=== PATIENT | female | born 1975 | race American Indian/Alaskan Native ===

== ENCOUNTER 2017-07-21 19:47 | Emergency (ER) | payer SELFPAY ==
[2017-07-21 20:24] VITALS: BP 131/89
[2017-07-21 21:05] LABS: Bilirubin,Urine NEG (Negative); Blood,Urine NEG (Negative); Color,Urine Yellow (Yellow); Protein,Urine <15 mg/dL mg/dL (Negative); Urobilinogen,Urine < 2.0 mg/dL (<2.0); WBC,Urine < 1.0 /HPF (0.0-6.0)
[2017-07-21 21:06] LABS: HCG Qualitative,Urine Negative (Negative)
[2017-07-21 21:30] LABS: Basophils % (Auto) 0.6 % (0.0-1.8); Eosinophils # (Auto) 0.3 K/mm3 (0.0-0.4); Eosinophils % (Auto) 4.1 % (0.0-4.3); Hematocrit 38.2 % (30.3-42.9); Hemoglobin 12.7 gm/dl (10.1-14.3); Lymphocytes # (Auto) 1.8 K/mm3 (1.2-5.4); Lymphocytes % (Auto) 24.8 % (13.4-35.0); Mean Corpuscular HGB Conc 33 % (30-34); Mean Corpuscular Hemoglobin 33 pg (28-32); Mean Corpuscular Volume 100 fl (79-97); Monocytes # (Auto) 0.9 K/mm3 (0.0-0.8); Monocytes % (Auto) 12.4 % (0.0-7.3); Platelet Count 213 K/mm3 (140-440); Red Blood Count 3.84 M/mm3 (3.65-5.03); Red Cell Distribution Width 12.9 % (13.2-15.2)
[2017-07-21 21:42] LABS: Alanine Aminotransferase 43 units/L (7-56); Albumin 4.5 g/dL (3.9-5); BUN/Creatinine Ratio 12; Blood Urea Nitrogen 7 mg/dL (7-17); Calcium 8.8 mg/dL (8.4-10.2); Hemolysis Index 2
== END 2017-07-21 21:01 | disposition left against medical advice (07) ==
LOC: ED 19:47
DX: R53.1 Weakness (principal); Z53.21 Procedure and treatment not carried out due to patient leaving prior to being seen by health care provider
CPT/HCPCS: 36415; 80053; 81001; 81025; 85025

== ENCOUNTER 2017-07-22 16:30 | Emergency (ER) | payer SELFPAY ==
[2017-07-22] MEDS ORDERED: ZOFRAN IV ONE (19:32)
[2017-07-22] MEDS ORDERED: NACL 0.9% 1000 ML 1,000 ML IV ONE (19:32)
[2017-07-22] MEDS ORDERED: NORCO 5/325 PO ONE (22:12)
--- NOTE | 2017-07-22 22:29 | Emergency Department Report ---
HPI - General Chief Complaint: Abdominal Pain Time Seen by Provider: 07/22/17 19:26 - HPI HPI: The patient is a 42-year-old female who presents for evaluation of abdominal pain. The patient reports 3-4 weeks of lower abdominal pain, crampy in quality , moderate in severity, improved with defecation, associated with nausea, nonbilious, nonbloody emesis, multiple episodes of loose watery stools. The patient denies blood in the stools, black tarry stools, recent antibiotic use, travel outside the country, exposure to raw or uncooked seafood, reheated foods , untreated water, unpasteurized dairy, or reptilian pets including lizards, frogs, or snakes. ED Past Medical Hx - Past Medical History Hx GERD: Yes - Surgical History Additional Surgical History: tonsillectomy - Social History Smoking Status: Current Every Day Smoker Substance Use Type: Alcohol - Medications Home Medications: Home Medications Medication Instructions Recorded Confirmed Last Taken Type HYDROcodone/APAP 7.5-325 [[place] 1 each PO Q6HR PRN #20 tablet 07/17/13 Unknown Rx 7.5/325 mg] Naproxen [Naprosyn] 500 mg PO BID #30 tablet 07/17/13 Unknown Rx methOCARBAMOL [Robaxin] 500 mg PO BID #30 tab 07/17/13 Unknown Rx methylPREDNISolone [Medrol Dose 4 mg PO DAILY 6 Days tab 07/17/13 Unknown Rx [place]] Acetaminophen/Codeine [Tylenol #3] 1 tab PO Q6H PRN #14 tab 07/22/17 Unknown Rx Ondansetron [Zofran TAB] 4 mg PO Q8HR PRN #20 tablet 07/22/17 Unknown Rx ED Review of Systems ROS: Stated complaint: ABD PAIN/DIARRHEA Other details as noted in HPI Constitutional: denies: fever ENT: denies: throat or neck pain Respiratory: denies: cough, shortness of breath Cardiovascular: denies: chest pain Endocrine: denies unexplained weight loss or gain Gastrointestinal:reports abdominal pain, nausea Genitourinary: denies: dysuria Musculoskeletal: denies: leg swelling Skin: denies: rash Neurological: denies: headache Hematological/Lymphatic: denies: easy bleeding or easy bruising Psych: denies sadness or hopelessness Physical Exam - Physical Exam Vital Signs: Vital Signs 06/07/22/17 07/22/17 16:36 20:04 20:07 Temperature 97.5 F L 98.4 F Pulse Rate 105 H 92 H Respiratory 17 20 20 Rate Blood Pressure 128/96 Blood Pressure 138/95 [Left] O2 Sat by Pulse 98 99 99 Oximetry Physical Exam: General: well-nourished, well-developed, no acute distress Head: Normocephalic, atraumatic Eyes: normal sclera ENT: Mucous membranes are pale and dry Neck: No neck stiffness, no cervical adenopathy Respiratory: Breath sounds equal bilaterally, no wheezing, rales, or rhonchi Cardio: S1 and S2 present, no murmurs, rubs, gallops, capillary refill is delayed Abdomen: Normoactive bowel sounds, soft abdomen, llq tender to palpation, no rigidity, no guarding or rebound tenderness Musc: No pitting edema Skin: No rash Neuro: no facial drooping, normal speech Psych: Normal affect ED Course Vital Signs 07/22/17 07/22/17 07/22/17 16:36 20:04 20:07 Temperature 97.5 F L 98.4 F Pulse Rate 105 H 92 H Respiratory 17 20 20 Rate Blood Pressure 128/96 Blood Pressure 138/95 [Left] O2 Sat by Pulse 98 99 99 Oximetry ED Medical Decision Making - Medical Decision Making The patient was seen and examined by myself. The patient is placed on a bus driver/monitor and continuous pulse ox. On initial evaluation, the patient was found to be in no distress. Evaluation orders are placed. IV access is established and the patient is given 1 L normal saline fluid bolus and Zofran for nausea, and a Tylenol 3 for pain. Lab results were non-concerning including WBC, hemoglobin, hematocrit, electrolytes, renal function, LFTs, lipase, and urinalysis. The patient was reevaluated and reported that their symptoms were markedly improved. The patient is stable for discharge with outpatient follow- up. The patient is given follow-up and return instructions. The patient expressed understanding and agreed with the plan. The patient is discharged in stable condition. Critical care attestation.: If time is entered above; I have spent that time in minutes in the direct care of this critically ill patient, excluding procedure time. ED Disposition Clinical Impression: Acute abdominal pain in left lower quadrant, Dehydration Diarrhea Qualifiers: Diarrhea type: unspecified type Qualified Code(s): R19.7 - Diarrhea, unspecified Disposition: DC- TO HOME OR SELFCARE Is pt being admited?: No Does the pt Need Aspirin: No Condition: Stable Instructions: Gastroenteritis (ED), Abdominal Pain (ED), Nutrition Tips for Relief of Diarrhea (ED) Prescriptions: Acetaminophen/Codeine [Tylenol #3] 1 tab PO Q6H PRN #14 tab PRN Reason: Pain Ondansetron [Zofran TAB] 4 mg PO Q8HR PRN #20 tablet PRN Reason: Nausea Referrals: [facility] [Provider Group] - 3-5 Days [facility] [Provider Group] - 3-5 Days Forms: Work/School Release Form(ED) Time of Disposition: 22:13
[2017-07-22 23:39] VITALS: BP 132/88
== END 2017-07-22 23:00 | disposition home or self-care (01) ==
LOC: ED 16:30
DX: E86.0 Dehydration (principal); R10.32 Left lower quadrant pain; R19.7 Diarrhea, unspecified; K21.9 Gastro-esophageal reflux disease without esophagitis; F17.200 Nicotine dependence, unspecified, uncomplicated; Z90.89 Acquired absence of other organs
CPT/HCPCS: 96361; 96374; 99283; J2405; J7030

== ENCOUNTER 2017-09-13 11:51 | Emergency (ER) | payer OTHER ==
[2017-09-13 13:26] LABS: Bilirubin,Urine NEG (Negative); Blood,Urine SM (Negative); Color,Urine Yellow (Yellow); Mucus,Urine 2+ /HPF; Urobilinogen,Urine < 2.0 mg/dL (<2.0)
[2017-09-13 13:29] LABS: HCG Qualitative,Urine Negative (Negative)
--- NOTE | 2017-09-13 14:33 | Emergency Department Report ---
Chief Complaint: Nausea/Vomiting/Diarrhea Stated Complaint: WEAKINESS/DIARRHEA Time Seen by Provider: 09/13/17 14:25 - HPI History of Present Illness: 42-year-old afterward female presents to the emergency department with a complaint of continued diarrhea and increased fatigue and general weakness. The patient was previously diagnosed with C. difficile and finished a 2 week course of Flagyl. However it did not appear to help as the patient still has 7- 8 bowel movements per day. She is following with a accounting bookkeeper who recently told her that her liver function tests are "down." She denies any chest pain, fever, nausea, vomiting, shortness of breath. - ROS Review of Systems: Positive for diarrhea, generalized weakness, fatigue Negative for fever, chest pain, shortness of breath - Exam Vital Signs: Vital Signs 09/13/17 11:58 Temperature 97.8 F Pulse Rate 103 H Respiratory 18 Rate Blood Pressure 110/81 O2 Sat by Pulse 99 Oximetry Physical Exam: Hyperactive bowel sounds. However abdomen is soft and nontoxic in appearance. Heart and lung Sounds are normal to auscultation. MSE screening note: Focused history and physical exam performed. Due to findings the following was ordered: I have ordered a CBC, CMP and TSH. Urinalysis only shows trace ketones and there is no signs of any urinary tract infection. ED Disposition for MSE Condition: Stable Referrals: PRIMARY CARE, [Primary Care Provider] - 3-5 Days
[2017-09-13] MEDS ORDERED: NACL 0.9% 1000 ML 1,000 ML IV ONE (15:09)
[2017-09-13 15:54] LABS: Basophils # (Auto) 0.1 K/mm3 (0.0-0.1); Basophils % (Auto) 1.1 % (0.0-1.8); Eosinophils # (Auto) 0.4 K/mm3 (0.0-0.4); Hematocrit 41.4 % (30.3-42.9); Hemoglobin 13.8 gm/dl (10.1-14.3); Lymphocytes # (Auto) 2.3 K/mm3 (1.2-5.4); Lymphocytes % (Auto) 41.7 % (13.4-35.0); Mean Corpuscular HGB Conc 33 % (30-34); Mean Corpuscular Hemoglobin 33 pg (28-32); Mean Corpuscular Volume 100 fl (79-97); Monocytes # (Auto) 0.5 K/mm3 (0.0-0.8); Monocytes % (Auto) 8.8 % (0.0-7.3); Platelet Count 163 K/mm3 (140-440); Red Blood Count 4.16 M/mm3 (3.65-5.03); Red Cell Distribution Width 13.1 % (13.2-15.2)
[2017-09-13 16:14] LABS: Alanine Aminotransferase 117 units/L (7-56); Albumin 4.1 g/dL (3.9-5); BUN/Creatinine Ratio 10; Blood Urea Nitrogen 5 mg/dL (7-17); Calcium 8.6 mg/dL (8.4-10.2); Hemolysis Index 10
--- NOTE | 2017-09-13 16:34 | Emergency Department Report ---
Vomiting/Diarrhea - HPI Chief Complaint: Nausea/Vomiting/Diarrhea Stated Complaint: WEAKINESS/DIARRHEA Time Seen by Provider: 09/13/17 14:25 Duration: 2-3 months Severity: severe Nausea/Vomiting Severity: None Diarrhea Severity: Severe Pain Severity: None Symptoms: Yes Watery Diarrhea, Yes Able to Tolerate Fluids, No Bloody diarrhea, No Fever, No Recent Unusual Foods, No Recent Untreated Water, No Recent use of Antibiotics, No Family w/ Similar Symptoms, No Contacts w/ Similar Symptoms, No Rash, No Hematuria, No Recent URI Symptoms Other History: This is a 42-year-old -[place] female who presents with diarrhea for 2-3 months. Past medical history of GERD. Patient states she has been feeling weak and tired since symptoms started. Patient states she is having assessment tachycardia episodes of diarrhea daily. She was diagnosed with C. difficile and amylase 2 weeks ago and placed on Flagyl. Patient states she completed a full course of Flagyl but continues to have diarrhea. She was referred to a microsoft net developer and was seen yesterday and placed on vancomycin but unable to picker / packer prescription because it was $100+. She was told by a microsoft net developer that her liver enzymes may be the cause of symptoms and she will switch antibiotics. She has a scheduled ultrasound with the microsoft net developer on September 27. Patient denies abdominal pain, vaginal bleeding or discharge, dysuria, frequency, urgency, and fever. ED Review of Systems ROS: Stated complaint: WEAKINESS/DIARRHEA Other details as noted in HPI Constitutional: denies: chills, fever Respiratory: denies: cough, shortness of breath, wheezing Cardiovascular: denies: chest pain, palpitations Gastrointestinal: diarrhea. denies: abdominal pain, nausea, vomiting, constipation, hematemesis, melena, hematochezia Genitourinary: denies: urgency, dysuria, frequency, discharge Neurological: denies: headache, weakness, numbness, paresthesias Psychiatric: denies: anxiety, depression ED Past Medical Hx - Past Medical History Previous Medical History?: Yes Hx GERD: Yes Additional medical history: c-diff - Surgical History Past Surgical History?: Yes Additional Surgical History: tonsillectomy. x 1 - Social History Smoking Status: Current Every Day Smoker Substance Use Type: Alcohol - Medications Home Medications: Home Medications Medication Instructions Recorded Confirmed Last Taken Type HYDROcodone/APAP 7.5-325 [[place] 1 each PO Q6HR PRN #20 tablet 07/17/13 Unknown Rx 7.5/325 mg] Naproxen [Naprosyn] 500 mg PO BID #30 tablet 07/17/13 Unknown Rx methOCARBAMOL [Robaxin] 500 mg PO BID #30 tab 07/17/13 Unknown Rx methylPREDNISolone [Medrol Dose 4 mg PO DAILY 6 Days tab 07/17/13 Unknown Rx [place]] Acetaminophen/Codeine [Tylenol #3] 1 tab PO Q6H PRN #14 tab 07/22/17 Unknown Rx Ondansetron [Zofran TAB] 4 mg PO Q8HR PRN #20 tablet 07/22/17 Unknown Rx Vomiting Diarrhea Exam - Exam General: Vital signs noted. No distress. Alert and acting appropriately. HEENT: Yes Moist Mucous Membranes, No Pharyngeal Erythema, No Pharyngeal Exudates, No Rhinorrhea, No Conjuctival Injection, No Frontal Tenderness, No Maxillary Tenderness Neck: No Adenopathy, No Rigidity Lungs: Yes Clear Lung Sounds, Yes Good Air Exchange, No Wheezes, No Stridor, No Cough, No Nasal Flaring, No Retractions, No Use of Accessory Muscles Heart exam: Regular: Yes, Murmur: No, Tachycardia: No Abdomen: Tenderness: No, Peritoneal Signs: No, Distention: No, Hyperactive Bowel sounds: No Skin exam: Rash: No, Edema: No, Normal turgor: Yes Neurologic: Alert and oriented, no deficits. Musculoskeletal: Unremarkable. ED Course Vital Signs 09/13/17 11:58 Temperature 97.8 F Pulse Rate 103 H Respiratory 18 Rate Blood Pressure 110/81 O2 Sat by Pulse 99 Oximetry ED Medical Decision Making - Lab Data Result diagrams: 09/13/17 15:03 09/13/17 15:03 - Radiology Data Radiology results: report reviewed PROCEDURE: US ABDOMEN COMPLETE TECHNIQUE: Real-time sonography in multiple planes of the abdomen was performed with image documentation. CPT 67834 HISTORY: elevated liver enzymes COMPARISON: No prior studies are available for comparison. FINDINGS: Examination the right upper quadrant shows normal echogenicity of the liver. No masses are identified. Common bile duct is normal caliber measuring 1.8 millimeters. The intrahepatic ducts are not distended. No ascites is seen. Gallbladder appears normal. No evidence of gallstones or gallbladder wall thickening. Visualized portions of the pancreas appear normal. Portions of the tail of the pancreas are obscured by bowel gas and cannot be commented on. The right and left kidney show normal echogenicity of the renal cortex. No masses calculi or hydronephrosis visualized. The right kidney measures 11.2 centimeters greatest length the left kidney measures 9.6 centimeters greatest length. The spleen is unremarkable measuring 6.5 centimeters. Proximal abdominal aorta is normal appearance measuring 1.8 centimeter in diameter. Mid and distal abdominal aorta are not visualized. Visualized inferior vena cava is unremarkable. IMPRESSION: Negative exam.. - Medical Decision Making This is a 42 y.o. female that presents with diarrhea and weakness intermittently for 2-3 months. Patient is stable and was examined by me. Vitals stable. Obtained CMP, CBC, TSH, tropinin, UA, and EKG. Liver enzymes were elevated, trace ketones in urine and bun and creat low. US of abdomen obtained and dictated by radiologist. Essentially negative sonogram of abdomen. Given normal saline 1 L bolus in ER. Patient informed of US results and instructed to f/u with microsoft net developer as she is currently under care for further management. Discussed plan with patient and agreed to plan. No further questions noted by the patient. Discharged home in stable condition. Follow up with PCP in 2-3 days. Critical care attestation.: If time is entered above; I have spent that time in minutes in the direct care of this critically ill patient, excluding procedure time. ED Disposition Clinical Impression: Elevated liver enzymes Diarrhea Qualifiers: Diarrhea type: presumed infectious Qualified Code(s): R19.7 - Diarrhea, unspecified Disposition: DC- TO HOME OR SELFCARE Is pt being admited?: No Does the pt Need Aspirin: No Condition: Stable Instructions: Acute Diarrhea (ED) Additional Instructions: Follow-up with instructional services librarian is in near we management of elevated liver enzymes. Increase fluid intake to avoid dehydration. Follow up with primary care provider in 2-3 days. Referrals: BRIGIDO Jacked, [facility] [Provider Group] - 3-5 Days [facility] [Provider Group] - 3-5 Days Time of Disposition: 18:24 Print Language: AZERI
--- NOTE | 2017-09-13 17:54 | Ultrasound Report ---
FINAL REPORT PROCEDURE: US ABDOMEN COMPLETE TECHNIQUE: Real-time sonography in multiple planes of the abdomen was performed with image documentation. CPT 84490 HISTORY: elevated liver enzymes COMPARISON: No prior studies are available for comparison. FINDINGS: Examination the right upper quadrant shows normal echogenicity of the liver. No masses are identified. Common bile duct is normal caliber measuring 1.8 millimeters. The intrahepatic ducts are not distended. No ascites is seen. Gallbladder appears normal. No evidence of gallstones or gallbladder wall thickening. Visualized portions of the pancreas appear normal. Portions of the tail of the pancreas are obscured by bowel gas and cannot be commented on. The right and left kidney show normal echogenicity of the renal cortex. No masses calculi or hydronephrosis visualized. The right kidney measures 11.2 centimeters greatest length the left kidney measures 9.6 centimeters greatest length. The spleen is unremarkable measuring 6.5 centimeters. Proximal abdominal aorta is normal appearance measuring 1.8 centimeter in diameter. Mid and distal abdominal aorta are not visualized. Visualized inferior vena cava is unremarkable. IMPRESSION: Negative exam..
[2017-09-13 18:38] VITALS: BP 112/78
== END 2017-09-13 18:25 | disposition home or self-care (01) ==
LOC: ED 11:51
DX: R19.7 Diarrhea, unspecified (principal); R74.8 Abnormal levels of other serum enzymes; Z88.1 Allergy status to other antibiotic agents; K21.9 Gastro-esophageal reflux disease without esophagitis; Z90.49 Acquired absence of other specified parts of digestive tract; F17.200 Nicotine dependence, unspecified, uncomplicated
CPT/HCPCS: 36415; 76700; 80053; 81001; 81025; 84443; 84484; 85025; 93005; 93010; 96360; 99284; J7030

== ENCOUNTER 2017-09-16 19:56 | Emergency (ER) | payer OTHER ==
[2017-09-16] MEDS ORDERED: NACL 0.9% 1000 ML 1,000 ML IV ONE (20:58)
[2017-09-16 21:03] LABS: Bacteria,Urine 1+ /HPF (Negative); Bilirubin,Urine NEG (Negative); Blood,Urine NEG (Negative); Color,Urine Yellow (Yellow); Protein,Urine <15 mg/dL mg/dL (Negative); Urobilinogen,Urine < 2.0 mg/dL (<2.0)
[2017-09-16 21:36] LABS: Hematocrit 39.4 % (30.3-42.9); Hemoglobin 13.6 gm/dl (10.1-14.3); Mean Corpuscular HGB Conc 35 % (30-34); Mean Corpuscular Hemoglobin 34 pg (28-32); Mean Corpuscular Volume 98 fl (79-97); Platelet Count 158 K/mm3 (140-440); Red Blood Count 4.02 M/mm3 (3.65-5.03); Red Cell Distribution Width 13.4 % (13.2-15.2)
[2017-09-16 21:58] LABS: Alanine Aminotransferase 86 units/L (7-56); Albumin 4.2 g/dL (3.9-5); BUN/Creatinine Ratio 5; Blood Urea Nitrogen 3 mg/dL (7-17); Calcium 9.2 mg/dL (8.4-10.2); Hemolysis Index 12
--- NOTE | 2017-09-16 22:33 | Cat Scan Report ---
FINAL REPORT EXAM: CT HEAD/BRAIN WO CON HISTORY: Headache w/ blurred vision and tingling TECHNIQUE: 2.5 millimeter axial images from the skullbase to the vertex. Comparison: None FINDINGS: There is no evidence of an acute intracranial process, intracranial hemorrhage or mass effect. The ventricles are normal size. 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 The bony structures are unremarkable in appearance. IMPRESSION: 1. No evidence of an acute intracranial process, intracranial hemorrhage or mass effect. If there is a clinical suspicion of an acute intracranial process and if further imaging is required, MRI brain may be helpful.
--- NOTE | 2017-09-17 00:54 | Emergency Department Report ---
ED General Adult HPI - General Chief complaint: Neuro Symptoms/Deficit Stated complaint: HEADACHE/BLURRED VISION/NUMBNESS Time Seen by Provider: 09/17/17 00:04 Source: patient Mode of arrival: Ambulatory Limitations: No Limitations - History of Present Illness Initial comments: Patient gives somewhat complicated history, leading up to her presenting symptoms, which include frontal headache, tingling in the left side of her scalp and neck, with concerns for possible stroke or aneurysm, and have been present for 2-3 weeks, did not resolve spontaneously, and she and became concerned when she saw that aneurysm was a possibility. Patient has significant history of recent diagnosis of Clostridium difficile intestinal infection, with treatment failure earlier on Flagyl, and recent initiation of vancomycin, with improvement in diarrheal stools, but has been having significant fluid losses with 8-10 loose watery diarrheal stools daily until she began the vancomycin. She is also a difficulty eating, as taken in any solid food generally causes significant abdominal cramping. She has been compensating with increased fluids, finds it difficult to take in additional solid foods, and has not begun supplementing with nutritional supplements for unknown reason. Patient's history is also further complicated by the fact that she drinks significant amounts of alcohol on a daily basis, generally 4-5 hard liquor drinks each evening, after work, as she reports it is difficult to get any sleep without this. She did stop drinking entirely while she was on Flagyl because of the reported complications, but she started back drinking once she stopped the Flagyl, and although she has been on vancomycin for 2 days, did not stop drinking until yesterday. She has never had a problem with drinking before , has never been told that she has needed to stop, but has never sought rehabilitation, and generally prefers the beneficial effects on her sleep that she gets from drinking. Nonetheless, patient is now concerned about her secondary symptoms, with some agitation, and difficulty sleeping as well, but also is concerned about her symptoms today. She's had no prior history of neurologic problems, is in good general health otherwise, has no prior history of stroke, no heart disease, no hypertension. Severity scale (0 -10): 4 - Related Data Previous Rx's Medication Instructions Recorded Last Taken Type HYDROcodone/APAP 7.5-325 [[place] 1 each PO Q6HR PRN #20 tablet 07/17/13 Unknown Rx 7.5/325 mg] Naproxen [Naprosyn] 500 mg PO BID #30 tablet 07/17/13 Unknown Rx methOCARBAMOL [Robaxin] 500 mg PO BID #30 tab 07/17/13 Unknown Rx methylPREDNISolone [Medrol Dose 4 mg PO DAILY 6 Days tab 07/17/13 Unknown Rx [place]] Acetaminophen/Codeine [Tylenol #3] 1 tab PO Q6H PRN #14 tab 07/22/17 Unknown Rx Ondansetron [Zofran TAB] 4 mg PO Q8HR PRN #20 tablet 07/22/17 Unknown Rx LORazepam [Ativan] 1 mg PO .TAPER #90 tablet 09/17/17 Unknown Rx Allergies Allergy/AdvReac Type Severity Reaction Status Date / Time clindamycin Allergy Anaphylaxis Verified 02/06/13 07:02 ED Review of Systems ROS: Stated complaint: HEADACHE/BLURRED VISION/NUMBNESS Other details as noted in HPI Comment: All other systems reviewed and negative Constitutional: denies: chills, diaphoresis Eyes: vision change. denies: eye pain ENT: denies: throat pain Respiratory: denies: cough, orthopnea, shortness of breath Cardiovascular: denies: chest pain, palpitations, edema Endocrine: no symptoms reported. denies: flushing Gastrointestinal: abdominal pain (chronic, secondary to C. difficile, no acute changes), diarrhea. denies: nausea, vomiting, constipation Genitourinary: denies: as per HPI Musculoskeletal: denies: back pain, joint swelling, arthralgia Skin: denies: rash, lesions Neurological: headache (frontal bilaterally, with tingling left side), paresthesias (left-sided scalp radiating into neck). denies: weakness, numbness , abnormal gait, vertigo Psychiatric: anxiety. denies: depression, auditory hallucinations, visual hallucinations, suicidal thoughts Hematological/Lymphatic: denies: easy bleeding, easy bruising ED Past Medical Hx - Past Medical History Previous Medical History?: Yes Hx GERD: Yes Additional medical history: c-diff - Surgical History Past Surgical History?: Yes Additional Surgical History: tonsillectomy. x 1 - Social History Smoking Status: Current Every Day Smoker - Medications Home Medications: Home Medications Medication Instructions Recorded Confirmed Last Taken Type HYDROcodone/APAP 7.5-325 [[place] 1 each PO Q6HR PRN #20 tablet 07/17/13 Unknown Rx 7.5/325 mg] Naproxen [Naprosyn] 500 mg PO BID #30 tablet 07/17/13 Unknown Rx methOCARBAMOL [Robaxin] 500 mg PO BID #30 tab 07/17/13 Unknown Rx methylPREDNISolone [Medrol Dose 4 mg PO DAILY 6 Days tab 07/17/13 Unknown Rx [place]] Acetaminophen/Codeine [Tylenol #3] 1 tab PO Q6H PRN #14 tab 07/22/17 Unknown Rx Ondansetron [Zofran TAB] 4 mg PO Q8HR PRN #20 tablet 07/22/17 Unknown Rx LORazepam [Ativan] 1 mg PO .TAPER #90 tablet 09/17/17 Unknown Rx ED Physical Exam - General Limitations: No Limitations General appearance: alert, anxious, other (somewhat hyperactive, borderline vital signs, with mild hypertension, and mild tachycardia as well as mild tachypnea) - Head Head exam: Present: atraumatic, normocephalic - Eye Eye exam: Present: PERRL, EOMI. Absent: nystagmus - ENT ENT exam: Present: normal exam, mucous membranes moist - Neck Neck exam: Present: normal inspection, full ROM. Absent: meningismus - Respiratory Respiratory exam: Present: normal lung sounds bilaterally. Absent: respiratory distress, wheezes, rales, rhonchi, chest wall tenderness - Cardiovascular Cardiovascular Exam: Present: regular rate, tachycardia, normal heart sounds. Absent: systolic murmur, diastolic murmur - GI/Abdominal GI/Abdominal exam: Present: soft, normal bowel sounds. Absent: tenderness, mass - Rectal Rectal exam: Present: deferred - Extremities Exam Extremities exam: Present: normal inspection, full ROM, normal capillary refill. Absent: tenderness, pedal edema - Back Exam Back exam: Present: normal inspection. Absent: tenderness - Neurological Exam Neurological exam: Present: alert, oriented X3, CN II-XII intact, reflexes normal. Absent: motor sensory deficit - Psychiatric Psychiatric exam: Present: normal affect, normal mood (cooperative, appropriate throughout), other (slightly hyperactive, not clinically agitated) - Skin Skin exam: Present: warm, dry, intact. Absent: diaphoretic, petechiae, pallor, ecchymosis ED Course Vital Signs 09/16/17 09/16/17 09/16/17 20:03 23:53 23:55 Temperature 36.9 C 36.6 C Pulse Rate 96 H 105 H 103 H Respiratory 20 20 13 Rate Blood Pressure 146/108 Blood Pressure 128/101 [Right] O2 Sat by Pulse 98 100 100 Oximetry ED Medical Decision Making - Lab Data Result diagrams: 09/16/17 21:06 09/16/17 21:06 - Radiology Data Radiology results: report reviewed (CT scan of brain without contrast is negative) - Medical Decision Making Patient's symptoms and findings are a little bit difficult to untangle, but I believe her underlying difficulty is chronic alcohol abuse, and that she is experiencing mild withdrawal symptoms, having paresthesias and somatic symptoms , which could be aggravated by mild dehydration or mild metabolic abnormalities induced by her chronic diarrhea and Clostridium difficile infection, as well as her significant weight loss since she is unable to eat adequately also. She may well have an underlying anxiety disorder, as her significant other reports, I believe that she is mildly agitated and stimulated in general from alcohol withdrawal. We discussed her level of alcohol use, and I recommended that she consider stopping entirely, should she had gone a couple weeks without anything before, but that if she did resume drinking that she limit herself to 2 drinks per day. I think she needs some benzodiazepine support while she is experiencing symptoms, and we'll put her on withdrawal regimen, with gradual withdrawal of the benzodiazepine while she is reduce her alcohol, and recommend that she follow with mental health counseling. - Differential Diagnosis dehydration, neurologic deficit, metabolic abnormality, CVA Critical Care Time: No Critical care attestation.: If time is entered above; I have spent that time in minutes in the direct care of this critically ill patient, excluding procedure time. ED Disposition Clinical Impression: Paresthesias, Somatic symptom disorder, mild, Alcohol abuse, Alcohol withdrawal , Clostridium difficile enteritis Disposition: DC-01 TO HOME OR SELFCARE Is pt being admited?: No Does the pt Need Aspirin: No Condition: Stable Instructions: Hyperventilation (ED), Dehydration (ED), Abuse of Alcohol (ED), Alcohol Withdrawal (ED) Additional Instructions: Your symptoms today are not related to a stroke, posterior lab work and CT scan are both negative. Symptoms today are most likely related to your excessive use of alcohol, and the fact that you have recently stopped drinking, and are probably in a mild withdrawal syndrome. This can be compensated by dehydration from the chronic diarrhea, which can accentuate the secondary symptoms, along with hyperventilation, which can occur with anxiety and agitation, along with alcohol withdrawal. We are prescribing a mild tranquilizer, lorazepam, to treat your agitation, reduce the side effects of alcohol withdrawal, and to help you sleep. We want to take lorazepam on a regular basis over the next several weeks, as the secondary agitation from alcohol can remain for a prolonged period of time. For the first week, take one tablet of lorazepam 4 times a day, every 6 hours, on a regular basis. For the second week, you should then reduce lorazepam to 3 times a day, every 8 hours, on a regular basis The third week, take two tablets of lorazepam per day, every twelve hours. For the fourth week, take one tablet lorazepam daily. Although you have functioned well while using alcohol, this amount is still excessive and we recommend that you seek additional mental health counseling to understand and more fully deal with the consequences. Do not restart alcohol, but if you do, limit herself to a total of 2 drinks per day, and make plans to reduce this over the next month to full abstinence. We recommend recheck with your doctor in the next week, let them know of our findings, and our treatment plan, so that her doctor can be aware and can help him manage if you have any problems. Be sure to eat and drink well, but she should avoid significant solid foods, fatty foods, spicy foods, as long as he is upset the stomach, and substitute liquid nutrition drinks such as boost or ensure. Continue with the fluid rehydration, including Pedialyte, as this will help replace the central electrolytes that are lost with diarrhea. Return to Emergency department if you have any new or worrisome symptoms. Prescriptions: LORazepam [Ativan] 1 mg PO .TAPER #90 tablet Referrals: PRIMARY CARE, [Primary Care Provider] - 3-5 Days Time of Disposition: 01:01
[2017-09-17] MEDS ORDERED: ATIVAN PO ONE (01:05)
[2017-09-17 01:20] VITALS: BP 137/101
== END 2017-09-17 01:15 | disposition home or self-care (01) ==
LOC: ED 19:56
DX: F45.9 Somatoform disorder, unspecified (principal); R51 Headache; A04.72 Enterocolitis due to Clostridium difficile, not specified as recurrent; F10.239 Alcohol dependence with withdrawal, unspecified; K21.9 Gastro-esophageal reflux disease without esophagitis; F17.200 Nicotine dependence, unspecified, uncomplicated; Z90.89 Acquired absence of other organs; Z88.1 Allergy status to other antibiotic agents
CPT/HCPCS: 36415; 70450; 80053; 81001; 84703; 85027; 93005; 93010; 99284

== ENCOUNTER 2018-10-12 10:21 | Emergency (ER) | payer OTHER ==
[2018-10-12 10:30] VITALS: BP 112/82
--- NOTE | 2018-10-12 11:06 | Emergency Department Report ---
- General Chief Complaint: Upper Respiratory Infection Stated Complaint: HEAD/FACE PAIN Time Seen by Provider: 10/12/18 10:42 Source: patient Mode of arrival: Ambulatory Limitations: No Limitations - History of Present Illness Initial Comments: 43-year-old female with a past medical history of hypertension, GERD, and previous C. difficile infection presents to the Hospital complaining of sinus pressure, nasal congestion, facial pain for several weeks. Patient uses saline nasal spray without improvement. She denies purulent nasal discharge, fever, cough, or shortness of breath. - Related Data Previous Rx's Medication Instructions Recorded Last Taken Type HYDROcodone/APAP 7.5-325 [[place] 1 each PO Q6HR PRN #20 tablet 07/17/13 Unknown Rx 7.5/325 mg] Naproxen [Naprosyn] 500 mg PO BID #30 tablet 07/17/13 Unknown Rx methOCARBAMOL [Robaxin] 500 mg PO BID #30 tab 07/17/13 Unknown Rx methylPREDNISolone [Medrol Dose 4 mg PO DAILY 6 Days tab 07/17/13 Unknown Rx [place]] Acetaminophen/Codeine [Tylenol #3] 1 tab PO Q6H PRN #14 tab 07/22/17 Unknown Rx Ondansetron [Zofran TAB] 4 mg PO Q8HR PRN #20 tablet 07/22/17 Unknown Rx LORazepam [Ativan] 1 mg PO .TAPER #90 tablet 09/17/17 Unknown Rx Azithromycin [Zithromax Z-KRISTINA] 1 dose PO DAILY 5 Days tab 10/12/18 Unknown Rx Fluticasone [Flonase] 1 spray NS QDAY #1 bottle 10/12/18 Unknown Rx Omeprazole Magnesium [PriLOSEC Otc] 20 mg PO QDAY #30 tablet. 10/12/18 Unknown Rx Allergies Allergy/AdvReac Type Severity Reaction Status Date / Time clindamycin Allergy Anaphylaxis Verified 02/06/13 07:02 ED Review of Systems ROS: Stated complaint: HEAD/FACE PAIN Other details as noted in HPI Comment: All other systems reviewed and negative ED Past Medical Hx - Past Medical History Previous Medical History?: Yes Hx GERD: Yes Additional medical history: c-diff - Surgical History Past Surgical History?: Yes Additional Surgical History: tonsillectomy. x 1 - Social History Smoking Status: Current Every Day Smoker Substance Use Type: Alcohol - Medications Home Medications: Home Medications Medication Instructions Recorded Confirmed Last Taken Type HYDROcodone/APAP 7.5-325 [[place] 1 each PO Q6HR PRN #20 tablet 07/17/13 Unknown Rx 7.5/325 mg] Naproxen [Naprosyn] 500 mg PO BID #30 tablet 07/17/13 Unknown Rx methOCARBAMOL [Robaxin] 500 mg PO BID #30 tab 07/17/13 Unknown Rx methylPREDNISolone [Medrol Dose 4 mg PO DAILY 6 Days tab 07/17/13 Unknown Rx [place]] Acetaminophen/Codeine [Tylenol #3] 1 tab PO Q6H PRN #14 tab 07/22/17 Unknown Rx Ondansetron [Zofran TAB] 4 mg PO Q8HR PRN #20 tablet 07/22/17 Unknown Rx LORazepam [Ativan] 1 mg PO .TAPER #90 tablet 09/17/17 Unknown Rx Azithromycin [Zithromax Z-KRISTINA] 1 dose PO DAILY 5 Days tab 10/12/18 Unknown Rx Fluticasone [Flonase] 1 spray NS QDAY #1 bottle 10/12/18 Unknown Rx Omeprazole Magnesium [PriLOSEC Otc] 20 mg PO QDAY #30 tablet. 10/12/18 Unknown Rx ED Physical Exam - General Limitations: No Limitations - Other Other exam information: Normal: No acute distress Head: Atraumatic Eyes: Normal appearance ENT: Moist mucous membranes, bilateral maxi sinus tenderness, nasal congestion, Neck: Normal appearance, no midline cervical tenderness, no meningismus Chest: Clear to auscultation bilaterally, no wheezes, rales, crackles Cardiovascular: Regular rate and rhythm Abdomen: Soft, nontender, nondistended, no rebound or guarding, normal bowel sounds Back: Normal inspection Extremity: Normal appearance, full range of motion Neuro: Alert and oriented 3, speech normal, no gross motor sensory deficit Psych: Appropriate Skin: No rash ED Course Vital Signs 10/12/18 10:27 Temperature 98.4 F Pulse Rate 84 Respiratory 18 Rate Blood Pressure 112/82 ED Medical Decision Making - Medical Decision Making Patient presented with signs and symptoms of sinusitis. Likely viral versus allergic significant nasal congestion. Patient using saline nasal spray without improvement. Patient cannot take decongestants due to underlying hypertension. She also states that a previous prescribed Medrol Dosepak causes spike in her blood pressure. Patient symptoms are likely viral but patient states she wants to try antibiotics. Informed her that antibiotics only treat bacterial infections. Nasal steroids will also be tried in addition to saline spray. ENT follow-up encouraged for recurrent and chronic episodes of sinus pain and pressure. Patient also requesting medication for GERD. - Differential Diagnosis arthritis, GERD, URI Critical Care Time: No Critical care attestation.: If time is entered above; I have spent that time in minutes in the direct care of this critically ill patient, excluding procedure time. ED Disposition Clinical Impression: Sinusitis, GERD (gastroesophageal reflux disease), Nasal congestion Disposition: - TO HOME OR SELFCARE Is pt being admited?: No Does the pt Need Aspirin: No Condition: Stable Instructions: Sinusitis (ED), Gastroesophageal Reflux in Children (ED) Additional Instructions: Take your medications as prescribed. Follow-up with your doctor or the clinic/doctor provided. Return if symptoms worsen. Continue to use saline nasal spray for congestion. Follow up with ENT for evaluation due to chronic recurrent episodes of sinus pressure. Prescriptions: Fluticasone [Flonase] 1 spray NS QDAY #1 bottle Omeprazole Magnesium [PriLOSEC Otc] 20 mg PO QDAY #30 tablet. Azithromycin [Zithromax Z-KRISTINA] 1 dose PO DAILY 5 Days tab Referrals: TIMOTHY DOWNS MD [Staff Physician] - 3-5 Days (ENT) JILLIAN BHAKTA MD [Staff Physician] - 3-5 Days (ENT ) Time of Disposition: 11:07
== END 2018-10-12 11:39 | disposition home or self-care (01) ==
LOC: ED 10:21
DX: J01.90 Acute sinusitis, unspecified (principal); I10 Essential (primary) hypertension; K21.9 Gastro-esophageal reflux disease without esophagitis; F17.200 Nicotine dependence, unspecified, uncomplicated; Z88.1 Allergy status to other antibiotic agents; Z79.899 Other long term (current) drug therapy; Z90.89 Acquired absence of other organs
CPT/HCPCS: 99282

== ENCOUNTER 2018-11-02 12:24 | Emergency (ER) | payer SELFPAY ==
[2018-11-02 13:09] VITALS: BP 109/81
--- NOTE | 2018-11-02 13:50 | Cat Scan Report ---
CT HEAD WITHOUT CONTRAST INDICATION / CLINICAL INFORMATION: headache and dizziness. TECHNIQUE: All CT scans at this location are performed using CT dose reduction for ALARA by means of automated e xposure control. COMPARISON: None available. FINDINGS: HEMORRHAGE: No evidence of intracranial hemorrhage or extra-axial fluid collection. EXTRA-AXIAL SPACES: Cortical sulci, sylvian fissures and basilar cisterns have an unremarkable appear ance. VENTRICULAR SYSTEM: The ventricular system is of normal size and configuration. CEREBRAL PARENCHYMA: No areas of abnormal brain parenchymal attenuation are identified. There is no i ndication of recent infarction. MIDLINE SHIFT OR HERNIATION: There is no mass effect. CEREBELLUM / BRAINSTEM: Brainstem and cerebellum have an unremarkable appearance. INTRACRANIAL VESSELS:No abnormalities are identified on this noncontrast head CT. ORBITS: visualized portions of the orbits have an unremarkable appearance. SOFT TISSUES of HEAD: No significant abnormality. CALVARIUM: Evaluation of bone windows reveals no abnormalities. PARANASAL SINUSES / MASTOID AIR CELLS: Paranasal sinuses are free from inflammatory mucosal disease. Mastoid air cells are normally pneumatized. IMPRESSION: 1. No intracranial abnormalities are identified on head CT without contrast. Signer Name: Adelfo Suarez MD Signed: 11/02/2018 1:46 PM Workstation Name: [id number]
[2018-11-02 14:12] LABS: Hematocrit 36.6 % (30.3-42.9); Hemoglobin 12.5 gm/dl (10.1-14.3); Mean Corpuscular HGB Conc 34 % (30-34); Mean Corpuscular Volume 97 fl (79-97); Platelet Count 221 K/mm3 (140-440); Red Blood Count 3.78 M/mm3 (3.65-5.03); Red Cell Distribution Width 13.3 % (13.2-15.2)
[2018-11-02 14:38] LABS: Alanine Aminotransferase 31 units/L (7-56); BUN/Creatinine Ratio 10; Blood Urea Nitrogen 6 mg/dL (7-17); Calcium 8.3 mg/dL (8.4-10.2); Hemolysis Index 5
[2018-11-02 14:39] LABS: HCG Qualitative,Urine Negative (Negative)
[2018-11-02 14:45] LABS: Bilirubin,Direct < 0.2 mg/dL (0-0.2)
[2018-11-02 14:46] LABS: Creatine Kinase MB < 1.0 ng/mL (0.0-4.0)
[2018-11-02 14:48] LABS: Benzodiazepines Screen,Urine PRESUMPTIVE NEGATIVE; Cannabinoid Screen,Urine PRESUMPTIVE NEGATIVE; Cocaine Screen,Urine PRESUMPTIVE NEGATIVE; Methadone Screen,Urine PRESUMPTIVE NEGATIVE; Opiate Screen,Urine PRESUMPTIVE NEGATIVE
--- NOTE | 2018-11-02 14:50 | Event Note ---
ED Screening Note Date of service: 11/02/18 Time: 13:07 ED Screening Note: This is a 43 y.o. F. that presents to the ER with headache and dizziness for 1-2 weeks intermittently. Reports blurry vision and numbness on left side. Taking Goody powders with no improvement. Current smoker This initial assessment/diagnostic orders/clinical plan/treatment(s) is/are subject to change based on patients health status, clinical progression and re- assessment by fellow clinical providers in the ED. Further treatment and workup at subsequent clinical providers discretion. Patient/guardian urged not to elope from the ED as their condition may be serious if not clinically assessed and managed. Initial orders include: CT of head and accucheck
[2018-11-02 15:09] LABS: Total Cells Counted 100
[2018-11-02 15:11] LABS: Platelet Estimate Consistent w Auto; RBC Morphology Normal
[2018-11-02 15:13] LABS: Amphetamine Screen,Urine PRESUMPTIVE POSITIVE
[2018-11-02] MEDS ORDERED: BUTALB/ACETAMINOPHEN/CAFFEINE TAB PO ONE (15:26)
--- NOTE | 2018-11-02 15:27 | Emergency Department Report ---
ED General Adult HPI - General Chief complaint: Dizziness Stated complaint: DIZZY/HEADACHE Time Seen by Provider: 11/02/18 13:06 Source: patient Mode of arrival: Ambulatory Limitations: No Limitations - History of Present Illness Initial comments: This is a 43-year-old female with a plethora of complaints. She complains of headache which she gets she's had before. She's had previous CTs that were negative. She had a CT ordered by medical screening and was on before my encounter. It was normal. She states that she also has chest pain which she de scribes as "reflux". She states she takes ranitidine for that. Her headache was bifrontal and felt like a tightness. She states that she is not under significant stress. She really doesn't have any other active complaints at the time my encounter. -: week(s), month(s) Location: head, chest Radiation: non-radiation Quality: aching, other (chest pain like "reflux". Burning and acid taste in the back of throat) Consistency: intermittent Improves with: none Worsens with: none Associated Symptoms: denies other symptoms, chest pain. denies: nausea/vomiting, shortness of breath - Related Data Previous Rx's Medication Instructions Recorded Last Taken Type HYDROcodone/APAP 7.5-325 [[place] 1 each PO Q6HR PRN #20 tablet 07/17/13 Unknown Rx 7.5/325 mg] Naproxen [Naprosyn] 500 mg PO BID #30 tablet 07/17/13 Unknown Rx methOCARBAMOL [Robaxin] 500 mg PO BID #30 tab 07/17/13 Unknown Rx methylPREDNISolone [Medrol Dose 4 mg PO DAILY 6 Days tab 07/17/13 Unknown Rx [place]] Acetaminophen/Codeine [Tylenol #3] 1 tab PO Q6H PRN #14 tab 07/22/17 Unknown Rx Ondansetron [Zofran TAB] 4 mg PO Q8HR PRN #20 tablet 07/22/17 Unknown Rx LORazepam [Ativan] 1 mg PO .TAPER #90 tablet 09/17/17 Unknown Rx Azithromycin [Zithromax Z-[place]] 1 dose PO DAILY 5 Days tab 10/12/18 Unknown Rx Fluticasone [Flonase] 1 spray NS QDAY #1 bottle 10/12/18 Unknown Rx Omeprazole Magnesium [PriLOSEC Otc] 20 mg PO QDAY #30 tablet. 10/12/18 Unknown Rx Butalb/Acetaminophen/Caffeine 1 cap PO Q6HR PRN #10 cap 11/02/18 Unknown Rx [Fioricet 50-300-40 mg CAP] Lansoprazole [Prevacid] 15 mg PO BID #60 cap 11/02/18 Unknown Rx Allergies Allergy/AdvReac Type Severity Reaction Status Date / Time clindamycin Allergy Anaphylaxis Verified 11/02/18 13:09 ED Review of Systems ROS: Stated complaint: DIZZY/HEADACHE Other details as noted in HPI Constitutional: denies: chills, fever Eyes: denies: eye pain, eye discharge, vision change ENT: denies: ear pain, throat pain Respiratory: denies: cough, shortness of breath, wheezing Cardiovascular: chest pain. denies: palpitations Endocrine: no symptoms reported Gastrointestinal: denies: abdominal pain, nausea, diarrhea Genitourinary: denies: urgency, dysuria, discharge Musculoskeletal: denies: back pain, joint swelling, arthralgia Skin: denies: rash, lesions Neurological: headache. denies: weakness, paresthesias Psychiatric: denies: anxiety, depression Hematological/Lymphatic: denies: easy bleeding, easy bruising ED Past Medical Hx - Past Medical History Hx GERD: Yes Additional medical history: c-diff - Surgical History Additional Surgical History: tonsillectomy. x 1 - Social History Smoking Status: Current Every Day Smoker Substance Use Type: Alcohol - Medications Home Medications: Home Medications Medication Instructions Recorded Confirmed Last Taken Type HYDROcodone/APAP 7.5-325 [[place] 1 each PO Q6HR PRN #20 tablet 07/17/13 Unknown Rx 7.5/325 mg] Naproxen [Naprosyn] 500 mg PO BID #30 tablet 07/17/13 Unknown Rx methOCARBAMOL [Robaxin] 500 mg PO BID #30 tab 07/17/13 Unknown Rx methylPREDNISolone [Medrol Dose 4 mg PO DAILY 6 Days tab 07/17/13 Unknown Rx [place]] Acetaminophen/Codeine [Tylenol #3] 1 tab PO Q6H PRN #14 tab 07/22/17 Unknown Rx Ondansetron [Zofran TAB] 4 mg PO Q8HR PRN #20 tablet 07/22/17 Unknown Rx LORazepam [Ativan] 1 mg PO .TAPER #90 tablet 09/17/17 Unknown Rx Azithromycin [Zithromax Z-[place]] 1 dose PO DAILY 5 Days tab 10/12/18 Unknown Rx Fluticasone [Flonase] 1 spray NS QDAY #1 bottle 10/12/18 Unknown Rx Omeprazole Magnesium [PriLOSEC Otc] 20 mg PO QDAY #30 tablet. 10/12/18 Unknown Rx Butalb/Acetaminophen/Caffeine 1 cap PO Q6HR PRN #10 cap 11/02/18 Unknown Rx [Fioricet 50-300-40 mg CAP] Lansoprazole [Prevacid] 15 mg PO BID #60 cap 11/02/18 Unknown Rx ED Physical Exam - General Limitations: No Limitations General appearance: alert, in no apparent distress - Head Head exam: Present: atraumatic, normocephalic - Eye Eye exam: Present: normal appearance. Absent: scleral icterus - ENT ENT exam: Present: mucous membranes moist - Neck Neck exam: Present: normal inspection - Respiratory Respiratory exam: Present: normal lung sounds bilaterally. Absent: respiratory distress - Cardiovascular Cardiovascular Exam: Present: regular rate, normal rhythm. Absent: systolic murmur, diastolic murmur, rubs, gallop - GI/Abdominal GI/Abdominal exam: Present: soft, normal bowel sounds. Absent: distended, tenderness, guarding, rebound, rigid - Extremities Exam Extremities exam: Present: normal inspection - Back Exam Back exam: Present: normal inspection - Neurological Exam Neurological exam: Present: alert, oriented X3, CN II-XII intact, normal gait, other (cerebellar testing was normal). Absent: motor sensory deficit - Psychiatric Psychiatric exam: Present: normal affect, normal mood - Skin Skin exam: Present: warm, dry, intact, normal color. Absent: rash ED Course Vital Signs 11/02/18 13:08 Temperature 98.9 F Pulse Rate 60 Respiratory 16 Rate Blood Pressure 109/81 [Right] O2 Sat by Pulse 100 Oximetry - Reevaluation(s) Reevaluation #1: He states she's had similar symptoms in the past. She is encouraged to seek primary care follow-up. She is appropriate for outpatient disposition. 11/02/18 15:26 ED Medical Decision Making - Lab Data Result diagrams: 11/02/18 14:00 11/02/18 14:00 Laboratory Results - last 24 hr 11/02/18 11/02/1811/02/19 14:00 14:00 14:00 WBC 3.7 L RBC 3.78 Hgb 12.5 Hct 36.6 MCV 97 MCH 33 H MCHC 34 RDW 13.3 Plt Count 221 Add Manual Diff Complete Total Counted 100 Seg Neutrophils % [place] Seg Neuts % (Manual) 33.0 L Band Neutrophils % 0 Lymphocytes % (Manual) 55.0 H Reactive Lymphs % (Man) 0 Monocytes % (Manual) 10.0 H Eosinophils % (Manual) 1.0 Basophils % (Manual) 1.0 Metamyelocytes % 0 Myelocytes % 0 Promyelocytes % 0 Blast Cells % 0 Nucleated RBC % Not Reportable Seg Neutrophils # Man 1.2 L Band Neutrophils # 0.0 Lymphocytes # (Manual) 2.0 Abs React Lymphs (Man) 0.0 Monocytes # (Manual) 0.4 Eosinophils # (Manual) 0.0 Basophils # (Manual) 0.0 Metamyelocytes # 0.0 Myelocytes # 0.0 Promyelocytes # 0.0 Blast Cells # 0.0 WBC Morphology Not Reportable Hypersegmented Neuts Not Reportable Hyposegmented Neuts Not Reportable Hypogranular Neuts Not Reportable Smudge Cells Not Reportable Toxic Granulation Not Reportable Toxic Vacuolation Not Reportable Dohle Bodies Not Reportable Pelger-Huet Anomaly Not Reportable Justin Rods Not Reportable Platelet Estimate Consistent w auto Clumped Platelets Not Reportable Plt Clumps, EDTA Not Reportable Large Platelets Not Reportable Giant Platelets Not Reportable Platelet Satelliting Not Reportable Plt Morphology Comment Not Reportable RBC Morphology Normal Dimorphic RBCs Not Reportable Polychromasia Not Reportable Hypochromasia Not Reportable Poikilocytosis Not Reportable Anisocytosis Not Reportable Microcytosis Not Reportable Macrocytosis Not Reportable Spherocytes Not Reportable Pappenheimer Bodies Not Reportable Sickle Cells Not Reportable Target Cells Not Reportable Tear Drop Cells Not Reportable Ovalocytes Not Reportable Helmet Cells Not Reportable [place] Bodies Not Reportable Anderson Rings Not Reportable Ricardo Cells Not Reportable Bite Cells Not Reportable Crenated Cell Not Reportable Elliptocytes Not Reportable Acanthocytes (Spur) Not Reportable Rouleaux Not Reportable Hemoglobin C Crystals Not Reportable Schistocytes Not Reportable Malaria parasites Not Reportable Christopher Bodies Not Reportable Hem Pathologist Commnt No Sodium 142 Potassium 4.1 Chloride 104.8 Carbon Dioxide 22 Anion Gap 19 BUN 6 L Creatinine 0.6 L Estimated GFR > 60 BUN/Creatinine Ratio 10 Glucose 87 POC Glucose Calcium 8.3 L Total Bilirubin 0.30 Direct Bilirubin < 0.2 Indirect Bilirubin 0.1 AST 39 ALT 31 Alkaline Phosphatase 56 Total Creatine Kinase 73 CK-MB (CK-2) < 1.0 CK-MB (CK-2) Rel Index 1.3 Troponin T < 0.010 Total Protein 7.2 Albumin 4.0 Albumin/Globulin Ratio 1.3 Urine HCG, Qual Urine Opiates Screen Urine Methadone Screen Ur Barbiturates Screen Ur Phencyclidine Scrn Ur Amphetamines Screen U Benzodiazepines Scrn Urine Cocaine Screen U Marijuana (THC) Screen 11/02/18 11/02/18 11/02/18 14:12 14:12 14:23 WBC RBC Hgb Hct MCV MCH MCHC RDW Plt Count Add Manual Diff Total Counted Seg Neutrophils % Seg Neuts % (Manual) Band Neutrophils % Lymphocytes % (Manual) Reactive Lymphs % (Man) Monocytes % (Manual) Eosinophils % (Manual) Basophils % (Manual) Metamyelocytes % Myelocytes % Promyelocytes % Blast Cells % Nucleated RBC % Seg Neutrophils # Man Band Neutrophils # Lymphocytes # (Manual) Abs React Lymphs (Man) Monocytes # (Manual) Eosinophils # (Manual) Basophils # (Manual) Metamyelocytes # Myelocytes # Promyelocytes # Blast Cells # WBC Morphology Hypersegmented Neuts Hyposegmented Neuts Hypogranular Neuts Smudge Cells Toxic Granulation Toxic Vacuolation Dohle Bodies Pelger-Huet Anomaly Justin Rods Platelet Estimate Clumped Platelets Plt Clumps, EDTA Large Platelets Giant Platelets Platelet Satelliting Plt Morphology Comment RBC Morphology Dimorphic RBCs Polychromasia Hypochromasia Poikilocytosis Anisocytosis Microcytosis Macrocytosis Spherocytes Pappenheimer Bodies Sickle Cells Target Cells Tear Drop Cells Ovalocytes Helmet Cells [place] Bodies Anderson Rings Ricardo Cells Bite Cells Crenated Cell Elliptocytes Acanthocytes (Spur) Rouleaux Hemoglobin C Crystals Schistocytes Malaria parasites Christopher Bodies Hem Pathologist Commnt Sodium Potassium Chloride Carbon Dioxide Anion Gap BUN Creatinine Estimated GFR BUN/Creatinine Ratio Glucose POC Glucose 85 Calcium Total Bilirubin Direct Bilirubin Indirect Bilirubin AST ALT Alkaline Phosphatase Total Creatine Kinase CK-MB (CK-2) CK-MB (CK-2) Rel Index Troponin T Total Protein Albumin Albumin/Globulin Ratio Urine HCG, Qual Negative Urine Opiates Screen Presumptive negative Urine Methadone Screen Presumptive negative Ur Barbiturates Screen Presumptive negative Ur Phencyclidine Scrn Presumptive negative Ur Amphetamines Screen Presumptive positive U Benzodiazepines Scrn Presumptive negative Urine Cocaine Screen Presumptive negative U Marijuana (THC) Screen Presumptive negative - EKG Data -: EKG Interpreted by Me EKG shows normal: sinus rhythm, axis, intervals, QRS complexes, ST-T waves Rate: normal - EKG Data Interpretation: no acute changes Critical care attestation.: If time is entered above; I have spent that time in minutes in the direct care of this critically ill patient, excluding procedure time. ED Disposition Clinical Impression: Cephalalgia Qualifiers: Headache type: unspecified Headache chronicity pattern: acute headache Intractability: not intractable Qualified Code(s): R51 - Headache GERD (gastroesophageal reflux disease) Qualifiers: Esophagitis presence: esophagitis presence not specified Qualified Code(s): K21.9 - Gastro-esophageal reflux disease without esophagitis Disposition: TO HOME OR SELFCARE Is pt being admited?: No Does the pt Need Aspirin: No Condition: Stable Instructions: Acute Headache (ED), Gastroesophageal Reflux Disease (ED) Additional Instructions: Arcs as directed. Return to the emergency department any acute change or problems. Primary care follow-up for example at this outside medical clinic. She department any acute change problem. Prescriptions: Butalb/Acetaminophen/Caffeine [Fioricet 50-300-40 mg CAP] 1 cap PO Q6HR PRN #10 cap PRN Reason: headache Lansoprazole [Prevacid] 15 mg PO BID #60 cap Referrals: ARACELI WARNER MD [Primary Care Provider] - 3-5 Days Time of Disposition: 15:29
== END 2018-11-02 15:54 | disposition home or self-care (01) ==
LOC: ED 12:24
DX: K21.9 Gastro-esophageal reflux disease without esophagitis (principal); R51 Headache; Z88.1 Allergy status to other antibiotic agents; F17.200 Nicotine dependence, unspecified, uncomplicated
CPT/HCPCS: 36415; 70450; 80048; 80076; 80307; 81025; 82550; 82553; 82962; 84484; 85007; 85025; 93005; 93010

== ENCOUNTER 2019-01-07 07:21 | Emergency (ER) | payer SELFPAY ==
[2019-01-07 08:13] LABS: Hematocrit 40.9 % (30.3-42.9); Hemoglobin 13.9 gm/dl (10.1-14.3); Mean Corpuscular HGB Conc 34 % (30-34); Mean Corpuscular Volume 101 fl (79-97); Platelet Count 189 K/mm3 (140-440); Red Blood Count 4.05 M/mm3 (3.65-5.03); Red Cell Distribution Width 14.1 % (13.2-15.2)
[2019-01-07 08:36] LABS: Alanine Aminotransferase 127 units/L (7-56); Albumin 4.5 g/dL (3.9-5); BUN/Creatinine Ratio 8; Blood Urea Nitrogen 5 mg/dL (7-17); Calcium 9.5 mg/dL (8.4-10.2); Hemolysis Index 17
[2019-01-07 08:47] LABS: Mucus,Urine FEW /HPF
[2019-01-07] MEDS ORDERED: PANTOPRAZOLE 40 MG INJ IV ONE (09:02)
[2019-01-07] MEDS ORDERED: THIAMINE 100 MG, FOLIC ACID 1 MG, MULTIPLE VITAMIN INJ, ADULT 10 ML in SODIUM CHLORIDE ... IV ONE (09:02)
--- NOTE | 2019-01-07 09:10 | Emergency Department Report ---
HPI - General Chief Complaint: Abdominal Pain Time Seen by Provider: 01/07/19 08:25 - HPI HPI: 43-year-old [place] female presents to the emergency department with the complaint of the intermittent posterior headache that occurs just about every ni ght. Patient says that the only thing that helps is drinking alcohol, which she does nightly. The patient does get up in the morning and work "an 8 hour job" but then says she gets the headache and is unable to sleep at night, she drinks alcohol. She says that she drinks about 3 drinks of hard liquor. Patient also reports a loss of appetite, some mild abdominal discomfort. She had an episode of nausea and vomiting last night and said that she saw some blood tinged emesis at that time. She denies any current nausea. Sometimes she will try Goody's powder for her headache without any relief. No primary care physician. She is a tobacco smoker but denies any illicit drugs. She denies any vision change, slurred speech or any neurological deficits. ED Past Medical Hx - Past Medical History Previous Medical History?: Yes Hx GERD: Yes Additional medical history: c-diff, ETOH abuse - Surgical History Past Surgical History?: Yes Additional Surgical History: tonsillectomy. x 1 - Social History Smoking Status: Current Every Day Smoker Substance Use Type: Alcohol - Medications Home Medications: Home Medications Medication Instructions Recorded Confirmed Last Taken Type HYDROcodone/APAP 7.5-325 [[place] 1 each PO Q6HR PRN #20 tablet 07/17/13 Unknown Rx 7.5/325 mg] Naproxen [Naprosyn] 500 mg PO BID #30 tablet 07/17/13 Unknown Rx methOCARBAMOL [Robaxin] 500 mg PO BID #30 tab 07/17/13 Unknown Rx methylPREDNISolone [Medrol Dose 4 mg PO DAILY 6 Days tab 07/17/13 Unknown Rx [place]] Acetaminophen/Codeine [Tylenol #3] 1 tab PO Q6H PRN #14 tab 07/22/17 Unknown Rx Ondansetron [Zofran TAB] 4 mg PO Q8HR PRN #20 tablet 07/22/17 Unknown Rx LORazepam [Ativan] 1 mg PO .TAPER #90 tablet 09/17/17 Unknown Rx Azithromycin [Zithromax Z-KRISTINA] 1 dose PO DAILY 5 Days tab 10/12/18 Unknown Rx Fluticasone [Flonase] 1 spray NS QDAY #1 bottle 10/12/18 Unknown Rx Omeprazole Magnesium [PriLOSEC Otc] 20 mg PO QDAY #30 tablet. 10/12/18 Unknown Rx Butalb/Acetaminophen/Caffeine 1 cap PO Q6HR PRN #10 cap 11/02/18 Unknown Rx [Fioricet 50-300-40 mg CAP] Lansoprazole [Prevacid] 15 mg PO BID #60 cap 11/02/18 Unknown Rx chlordiazePOXIDE [Librium] 25 mg PO Q8H PRN #15 capsule 01/07/19 Unknown Rx ED Review of Systems ROS: Stated complaint: HEAD PAIN/VOMIT/ABD PAIN Other details as noted in HPI Comment: All other systems reviewed and negative Constitutional: denies: chills, fever Eyes: denies: eye pain, vision change ENT: denies: ear pain, throat pain Respiratory: denies: cough, shortness of breath Cardiovascular: denies: chest pain, palpitations Gastrointestinal: abdominal pain, nausea, vomiting Genitourinary: denies: dysuria, discharge Musculoskeletal: denies: back pain, arthralgia Skin: denies: rash, lesions Neurological: headache. denies: weakness Physical Exam - Physical Exam Vital Signs: Vital Signs 01/07/19 07:27 Temperature 98.3 F Pulse Rate 104 H Respiratory 20 Rate Blood Pressure 130/91 [Right] O2 Sat by Pulse 97 Oximetry Physical Exam: GENERAL: The patient is well-developed well-nourished. HENT: Normocephalic. Atraumatic. Patient has moist mucous membranes. EYES: Extraocular motions are intact. Pupils equal reactive to light bilaterally. No nystagmus. NECK: Supple. Trachea is midline. CHEST/LUNGS: Clear to auscultation. There is no respiratory distress noted. HEART/CARDIOVASCULAR: Regular. There is no tachycardia. There is no murmur. ABDOMEN: Abdomen is soft, nontender. Patient has normal bowel sounds. There is no abdominal distention. SKIN: Skin is warm and dry. NEURO: The patient is awake, alert, and oriented. The patient is cooperative. The patient has no focal neurologic deficits. Normal speech. Cranial nerves II through XII grossly intact. MUSCULOSKELETAL: There is no tenderness or deformity. There is no limitation range of motion. There is no evidence of acute injury. ED Course Vital Signs 01/07/19 07:27 Temperature 98.3 F Pulse Rate 104 H Respiratory 20 Rate Blood Pressure 130/91 [Right] O2 Sat by Pulse 97 Oximetry ED Medical Decision Making - Lab Data Result diagrams: 01/07/19 07:48 01/07/19 07:48 - Radiology Data Radiology results: report reviewed ABDOMEN FLAT AND UPRIGHT HISTORY: Abd pain COMPARISON: None. TECHNIQUE: Supine and left lateral decubitus radiographs of the abdomen obtained. FINDINGS Bowel: Nonobstructive bowel pattern. There is a large unusual nonspecific collection of air in the midline pelvis. No abnormal air-fluid level. No free intraperitoneal air. Calcifications:No significant abnormal calcifications. Benign phleboliths in the pelvis. Osseous Structures: No significant osseous abnormality. Additional findings: The lower lung flores are clear. IMPRESSION: Large midline nonspecific pelvic collection of air. It is unusually large to be within the rectum or sigmoid colon and suggest possible air within the lumen of the urinary bladder. Consider CT abdomen and pelvis for further evaluation. The study is otherwise negative. CT ABDOMEN AND PELVIS WITH CONTRAST HISTORY: Abdominal and pelvic pain. COMPARISON: Abdominal radiograph done earlier on 01/07/2019. Abdominal ultrasound on 09/13/2017. TECHNIQUE: Routine abdominal and pelvic CT exam performed following intravenous contrast administration. The patient received 100 mL of IV Omnipaque 300. All CT scans at this location are performed using CT dose reduction for ALARA by means of automated exposure control. FINDINGS: CT ABDOMEN: Lung Bases: No significant abnormality. Liver: No significant abnormality. Biliary: No significant abnormality. Spleen: No significant abnormality. Unenlarged. Pancreas: No significant abnormality. Adrenals: No significant abnormality. Kidneys: No significant abnormality. Lymphatics: No lymphadenopathy. Vasculature: No significant abnormality. Bowel/Peritoneum: No significant abnormality. No free air. No free fluid. Normal appendix. No abnormal air collection in the pelvis. CT PELVIC: : No significant abnormality. Lymphatics: No lymphadenopathy. Osseous Structures: No aggressive appearing osseous lesions. There is grade 1 anterolisthesis of L5 on S1 due to chronic bilateral L5 pars defects. Additional Findings: None IMPRESSION: 1. No significant abnormality. - Medical Decision Making This patient initially presented with a complaint of some intermittent posterior headaches that occur mostly at night, and some intermittent abdominal pain. Initially the patient says that she drank last night and it was 3 small alcoholic drinks. However her blood alcohol level came back at 0.22 at around 9 AM this morning. The patient may have some level of intoxication but she is otherwise awake, alert, oriented without any focal, motor or sensory deficits in her cranial nerves are intact. An IV was placed and she was given some IV fluid resuscitation and a banana bag. Patient had elevation in her LFTs with an AST of 190 and ALT of about 120. This ratio appears consistent with her alcohol use. Coags are normal. Abdominal x-ray was done that was read by radiology as some concern for there being air within the bladder. They recommended a CT scan of the abdomen and pelvis with IV contrast which was com pleted and came back showing no abdominal or pelvic abnormalities, essentially a normal examination. The patient was reevaluated multiple times over close to 8 hours and her blood alcohol level came down to 0.08, the legal limit. I believe that at least some of the patient's symptoms are related to alcohol dependence and withdrawal. She did not have any significant withdrawal while in the emergency department. The patient expressed interest in getting help with her alcohol dependence. I have written a prescription for a five-day course of Librium to assist with her alcohol withdrawal and avoid further dependence. She understands the sedation that can occur with benzodiazepines and that it should not be mixed with alcohol as this could cause even worsening sedation or respiratory depression. She was also given a referral for the [facility]. Prior to discharge the patient was seen ambulatory and both appears and feels stable. She has been instructed to return to the emergency Department with any worsening of her symptoms or any acute distress. - Differential Diagnosis alcohol intoxication, alcohol withdrawal, tension headache, colitis Critical Care Time: No Critical care attestation.: If time is entered above; I have spent that time in minutes in the direct care of this critically ill patient, excluding procedure time. ED Disposition Clinical Impression: Intermittent headache Alcohol intoxication Qualifiers: Complication of substance-induced condition: uncomplicated Qualified Code(s): F10.920 - Alcohol use, unspecified with intoxication, uncomplicated Abdominal pain Qualifiers: Abdominal location: right lower quadrant Qualified Code(s): R10.31 - Right lower quadrant pain Disposition: DC-01 TO HOME OR SELFCARE Is pt being admited?: No Condition: Stable Instructions: Cluster Headache (ED), Alcohol Intoxication (ED), Abuse of Alcohol (ED), Acute Headache (ED), Abdominal Pain (ED) Additional Instructions: Please try and avoid any further alcohol use/abuse. I am giving you a referral for the [facility] in case she would like to talk to someone about your alcohol addiction/dependence. I have also given you some referrals for local primary care physicians and clinics. I am prescribing you a medication for your alcohol withdrawal, Librium, which is in the benzodiazepine class. This medication should not be mixed with alcohol of any quantity as it can cause increased sedation, respiratory depression. If you choose to not stay sober, or choose to continue drinking alcohol, please quit taking this medication immediately. Return to the emergency Department with any worsening of your symptoms or any acute distress. You have been prescribed a medication that is sedating and therefore should not be taken prior to driving, working, and responsible for children and in no way should be mixed with alcohol of any quantity. Prescriptions: chlordiazePOXIDE [Librium] 25 mg PO Q8H PRN #15 capsule PRN Reason: Alcohol Withdrawal Referrals: [facility] [Outside] - 2-3 Days [facility] [Outside] - 2-3 Days MARILYN GONZALEZ MD [Staff Physician] - 2-3 Days Forms: Work/School Release Form(ED) Time of Disposition: 15:23
[2019-01-07 09:40] LABS: Bilirubin,Urine Negative (Negative); Color,Urine Yellow (Yellow)
[2019-01-07 09:41] LABS: Blood,Urine Negative (Negative); Urobilinogen,Urine < 0.2 mg/dL (<2.0)
[2019-01-07 09:46] LABS: INR 0.91 (0.87-1.13)
[2019-01-07 09:47] LABS: Partial Thromboplastin Time 30.9 Sec. (24.2-36.6)
[2019-01-07 10:30] LABS: Basophils % (Manual) 0 % (0.0-1.8); Platelet Estimate Consistent w Auto; RBC Morphology Normal; Total Cells Counted 100
[2019-01-07] MEDS ORDERED: SODIUM CHLORIDE 0.9% 1000 ML 1,000 ML IV ONE (11:02)
--- NOTE | 2019-01-07 11:08 | XRay Report ---
ABDOMEN FLAT AND UPRIGHT HISTORY: Abd pain COMPARISON: None. TECHNIQUE: Supine and left lateral decubitus radiographs of the abdomen obtained. FINDINGS Bowel: Nonobstructive bowel pattern. There is a large unusual nonspecific collection of air in the mi dline pelvis. No abnormal air-fluid level. No free intraperitoneal air. Calcifications:No significant abnormal calcifications. Benign phleboliths in the pelvis. Osseous Structures: No significant osseous abnormality. Additional findings: The lower lung flores are clear. IMPRESSION: Large midline nonspecific pelvic collection of air. It is unusually large to be within th e rectum or sigmoid colon and suggest possible air within the lumen of the urinary bladder. Consider CT abdomen and pelvis for further evaluation. The study is otherwise negative. Signer Name: Tj Gautam MD Signed: 01/07/2019 11:03 AM Workstation Name: [id number]
--- NOTE | 2019-01-07 13:41 | Cat Scan Report ---
CT ABDOMEN AND PELVIS WITH CONTRAST HISTORY: Abdominal and pelvic pain. COMPARISON: Abdominal radiograph done earlier on 01/07/2019. Abdominal ultrasound on 09/13/2017. TECHNIQUE: Routine abdominal and pelvic CT exam performed following intravenous contrast administrat ion. The patient received 100 mL of IV Omnipaque 300. All CT scans at this location are performed usi ng CT dose reduction for ALARA by means of automated exposure control. FINDINGS: CT ABDOMEN: Lung Bases: No significant abnormality. Liver: No significant abnormality. Biliary: No significant abnormality. Spleen: No significant abnormality. Unenlarged. Pancreas: No significant abnormality. Adrenals: No significant abnormality. Kidneys: No significant abnormality. Lymphatics: No lymphadenopathy. Vasculature: No significant abnormality. Bowel/Peritoneum: No significant abnormality. No free air. No free fluid. Normal appendix. No abnorma l air collection in the pelvis. CT PELVIC: : No significant abnormality. Lymphatics: No lymphadenopathy. Osseous Structures: No aggressive appearing osseous lesions. There is grade 1 anterolisthesis of L5 o n S1 due to chronic bilateral L5 pars defects. Additional Findings: None IMPRESSION: 1. No significant abnormality. Signer Name: Clem Galicia MD Signed: 01/07/2019 1:37 PM Workstation Name: [id number]
[2019-01-07 15:36] VITALS: BP 122/81
== END 2019-01-07 15:46 | disposition home or self-care (01) ==
LOC: ED 07:21
DX: F10.920 Alcohol use, unspecified with intoxication, uncomplicated (principal); R51 Headache; R10.31 Right lower quadrant pain; F17.200 Nicotine dependence, unspecified, uncomplicated; F12.10 Cannabis abuse, uncomplicated; K21.9 Gastro-esophageal reflux disease without esophagitis; Z90.49 Acquired absence of other specified parts of digestive tract; Z79.899 Other long term (current) drug therapy; Z88.1 Allergy status to other antibiotic agents
CPT/HCPCS: 36415; 74019; 74177; 80053; 81001; 83690; 84703; 85007; 85025; 85610; 85730; 96365; 96366; 96375; 99285; C9113; J3411; J7030; Q9967; 80320; G0480